=== PATIENT | female | born 1990 ===

== ENCOUNTER 2023-02-25 17:40 | Outpatient (CLI) | payer OTHER, SELFPAY | END 2023-02-25 17:41 | disposition home or self-care (01) | LOC: AMB 03-07 13:55 | PROVIDERS: Visit Provider Family Medicine | DX: S09.93XA Unspecified injury of face, initial encounter (principal); V49.60XA Unspecified car occupant injured in collision with unspecified motor vehicles in traffic accident, initial encounter; Y92.414 Local residential or business street as the place of occurrence of the external cause | CPT/HCPCS: A0998 ==

== ENCOUNTER 2024-01-18 08:17 | Outpatient (CLI) | payer BC, SELFPAY | END 2024-01-18 08:18 | disposition home or self-care (01) | PROVIDERS: Visit Provider Registered Nurse | DX: Z00.00 Encounter for general adult medical examination without abnormal findings (principal); R53.83 Other fatigue; Z13.6 Encounter for screening for cardiovascular disorders | CPT/HCPCS: 80048; 80061; 82728 ==

== ENCOUNTER 2024-09-21 10:02 | Outpatient (CLI) | payer BC, SELFPAY | END 2024-09-21 10:03 | disposition home or self-care (01) | PROVIDERS: PCP Registered Nurse; Visit Provider Registered Nurse | DX: F41.9 Anxiety disorder, unspecified (principal); R20.2 Paresthesia of skin | CPT/HCPCS: 82306; 82607 ==